=== PATIENT | female | born 1945 | race Caucasian/White ===

== ENCOUNTER 2020-05-02 19:06 | Inpatient (IN) | payer SELFPAY ==
[~2020-05-02] VITALS: Ht 149.9 cm; Wt 94.8 kg
[2020-05-02] MEDS ORDERED: ASPIRIN 325 MG TABLET ONE (19:25)
[2020-05-02] MEDS ORDERED: NITROGLYCERIN PACKET 1 GM PACKET ONE (19:25)
[2020-05-02] MEDS ORDERED: ASPIRIN 325 MG TABLET PO ONE (19:30)
[2020-05-02] MEDS ORDERED: NITROGLYCERIN PACKET 1 GM PACKET TD ONE (19:30)
--- NOTE | 2020-05-02 19:31 | NUR ---
PT AAOX4. SAMI SPEAKING BIBDAUGHTER C/O L SIDED CP SINCE 2 DAYS AGO RADIATING TO L ARM. PT PLACED IN ROOM 9 ON GYROSCOPIC ENGINEERING TECHNICIAN AND PULSE OX. LINE INITIATED RAC 20G, BLOOD DRAWN AND SENT TO LAB. PT MEDICATED W 325MG PO ASPIRIN. VSS. NO ACUTE DISTRESS NOTED.
--- NOTE | 2020-05-02 19:34 | NUR ---
RADIOLOGY AT BEDSIDE FOR XRAY
[2020-05-02 19:38] LABS: BASOPHILS # (AUTO) 0.1 /CMM (0.0-0.2); BASOPHILS % (AUTO) 1.1 % (0.0-2.0); EOSINOPHILS % (AUTO) 1.3 % (0.0-6.0); HEMATOCRIT 44 % (33-45); HEMOGLOBIN 14.9 g/dL (11.5-14.8); LYMPHOCYTES # (AUTO) 2.2 /CMM (0.8-4.8); LYMPHOCYTES % (AUTO) 31.6 % (20.0-44.0); MEAN CORPUSCULAR HGB CONC 34 g/dl (31.0-36.0); MEAN CORPUSCULAR VOLUME 87 fL (82-100); MONOCYTES # (AUTO) 0.4 /CMM (0.1-1.30); MONOCYTES % (AUTO) 6.4 % (2.0-12.0); NEUTROPHILS # (AUTO) 4.2 /CMM (1.8-8.9); NEUTROPHILS % (AUTO) 59.6 % (43.0-81.0); PLATELET COUNT (AUTO) 170 /CMM (150-450); RED BLOOD CELL COUNT(AUTO) 5.09 MIL/uL (4.0-5.2)
--- NOTE | 2020-05-02 19:43 | NUR ---
AWAITING COVID SWAB
--- NOTE | 2020-05-02 20:02 | NUR ---
SPOKE TO FAMILY REGARDING TESTING PT FOR COVID, PT'S DAUGHTER STATED "LET ME ASK HER IF SHE WANTS TO STAY." MD NOTIFIED.
--- NOTE | 2020-05-02 20:15 | NUR ---
COVID SWAB SENT TO LAB
[2020-05-02 20:16] LABS: CALCIUM, SERUM 8.8 mg/dL (8.5-10.1); CARBON DIOXIDE 25 mmol/L (21-32); CHLORIDE 104 mmol/L (98-107); CREATININE 0.9 mg/dL (0.6-1.3); GLUCOSE 122 mg/dL (74-106); POTASSIUM 3.9 mmol/L (3.5-5.1); SODIUM SERUM 142 mmol/L (136-145); UREA NITROGEN, BLOOD 17 mg/dL (7-18)
[2020-05-02 20:21] LABS: ALANINE AMINOTRANSFERASE 41 U/L (12-78); ALBUMIN 3.9 g/dL (3.4-5.0); ALKALINE PHOSPHATASE 59 U/L (46-116); ASPARTATE AMINOTRANSFERASE 19 U/L (15-37); BILIRUBIN,DIRECT 0.1 mg/dL (0.0-0.2); BILIRUBIN,TOTAL 0.3 mg/dL (0.2-1.0); TOTAL PROTEIN, SERUM 7.7 g/dL (6.4-8.2)
[2020-05-02] MEDS ORDERED: ENALAPRILAT INJ (1.25 MG/ML) 1.25 MG/ML VIAL IV ONE (20:28)
[2020-05-02] MEDS ORDERED: ENALAPRILAT DIHYD. (2.5MG/ML) 1.25 MG/ML VIAL IV ONE (20:30)
--- NOTE | 2020-05-02 20:35 | NUR ---
VASOTEC HELD DUE TO BP BEING 156/73. NOTIFIED.
--- NOTE | 2020-05-02 20:55 | NUR ---
SPOKE TO LAB, STATED THEY RECIEVED COVID SWAB.
[2020-05-02] MEDS ORDERED: ENALAPRILAT INJ (1.25 MG/ML) 1.25 MG/ML VIAL IV PRN (21:00)
[2020-05-02] MEDS ORDERED: IV NS 0.9% 500 ML IV PRN (21:00)
[2020-05-02] MEDS ORDERED: NITROGLYCERIN 0.4 MG/TAB BOTTLE SL PRN (21:00)
[2020-05-02] MEDS ORDERED: MAG HYDROX/AL HYDROX/SIMETH 30 ML UDC PO PRN (21:00)
[2020-05-02] MEDS ORDERED: MORPHINE SULFATE INJ 2 MG/ML DISP.SYRIN IV PRN (21:00)
[2020-05-02] MEDS ORDERED: DOCUSATE SODIUM 100 MG CAPSULE PO PRN (21:00)
[2020-05-02] MEDS ORDERED: ONDANSETRON HCL/PF 4 MG/2 ML VIAL IVP PRN (21:00)
--- NOTE | 2020-05-02 21:18 | NUR ---
PT UNABLE TO RECALL MEDS. SPOKE TO DAUGHTER REGARDING CALLING ME W MED LIST. Addendum: 05/02/20 at 2218 by WALLY SPOKE TO STACIA CYR)
--- NOTE | 2020-05-02 21:40 | NUR ---
STACIA (PT'S FRIEND)
--- NOTE | 2020-05-02 22:15 | NUR ---
REPORT GIVEN TO RASHEEDA WRIGHT FOR SWAPNA
--- NOTE | 2020-05-02 22:18 | NUR ---
PT TRANSFERED PER ACLS PROTOCOL
--- NOTE | 2020-05-02 22:18 | NUR ---
UPDATED PAL[place]O PLAN OF CARE.
--- NOTE | 2020-05-02 23:01 | NUR ---
TRANSFORMATION SPECIALIST ADMITTING NOTES ADMITTED PATIENT, FROM ER TRANSPORTED VIA GURNEY, NO SIGNS OF ACUTE CARDIAC OR RESPIRATORY DISTRESS NOTED. ALERT ORIENTED X4, MICRONESIAN SPEAKING. ORIENTED TO ROOM AND THE USE OF CALL LIGHT. SAFETY MEASURES IN PLACE, ASPIRATION PRECAUTION EMPHASIZED. SEEN BY Felicita NAVARRETE NP. DENIES ANY PAIN OR DISCOMFORT AT THIS TIME, REPOSITIONED FOR COMFORT. SKIN INTACT NOTED DURING ASSESSMENT. CONNECTED TO TELE MONITOR READS SINUS RHYTHM 80s. PERIPHERAL IV ACCESS ON HER RIGHT AC G#20 INTACT AND PATENT. ALL NEEDS ANTICIPATED. ADMISSION PROCESS INITIATED. WILL CONTINUE TO MONITOR ACCORDINGLY.
[2020-05-02 23:59] VITALS: BP 151/93
[2020-05-03] MEDS: ACETAMINOPHEN 325 MG TABLET PO PRN ×3 (03:15→15:12)
[2020-05-03 04:21] VITALS: BP 139/82
--- NOTE | 2020-05-03 06:39 | NUR ---
FLOOR SURFACER NOTES ALL NEEDS ATTENDED AND MET, ABLE TO REST AND SLEPT AT INTERVALS. REPOSITIONED FOR COMFORT. IV ACCESS INTACT AND PATENT. SAFETY MEASURES IN PLACE, TELE MONITOR READS SINUS RHYTHM 85. ALL NEEDS ANTICIPATED. CALL LIGHT WITH IN EASY REACH. WILL ENDORSE TO AM NURSE FOR CONTINUITY OF CARE.
--- NOTE | 2020-05-03 07:30 | NUR ---
ms rn received on bed, awake,alert,oriented x4,not in any form of distress, respirations even and unlabored,no sob noted,denies pain at this time,will monitor patient.
[2020-05-03] MEDS ORDERED: IBUP-1953 PO (07:42)
[2020-05-03 08:00] VITALS: BP 122/48
--- NOTE | 2020-05-03 08:00 | NUR ---
ms rn was seen by dr. Marquis carbajal/ orders made and carried out.
[2020-05-03] MEDS ORDERED: ASPIRIN 81 MG TAB.CHEW PO SCH (09:00)
[2020-05-03] MEDS ORDERED: NITROGLYCERIN 0.4 MG/TAB BOTTLE SL ONE (09:30)
[2020-05-03 09:36] LABS: THYROID STIMULATING HORMONE 4.312 uIU/mL (0.358-3.74)
[2020-05-03] MEDS ORDERED: IOHEXOL-350 100 ML VIAL IV ONE (09:39)
[2020-05-03] MEDS ORDERED: IV NS 0.9% 250 ML IV ONE (09:39)
[2020-05-03] MEDS: METOPROLOL TARTRATE INJ 5 MG/5 ML AMPUL IVP PRN ×10 (09:50→10:35)
--- NOTE | 2020-05-03 10:00 | NUR ---
ms rn patient went down for ct angio at this time.
--- NOTE | 2020-05-03 11:04 | NUR ---
RN NOTES: Post CTA: Patient able to tolerate the procedure, no distress noted. Transferred back to patient room in stable condition.
--- NOTE | 2020-05-03 11:30 | NUR ---
ms rn patient came back from procedure,all needs attended.
[2020-05-03 12:00] VITALS: BP 135/87
[2020-05-03] MEDS ORDERED: METOPROLOL TARTRATE 50 MG TABLET PO SCH (12:00)
--- NOTE | 2020-05-03 12:30 | NUR ---
ms rn was seen by Amanda carbajal/ order to go home today.
--- NOTE | 2020-05-03 13:00 | NUR ---
ms rn refused metoprolol, patient claimed she has it already iv.
[2020-05-03] MEDS ORDERED: METO50TA16 PO (13:23)
[2020-05-03] MEDS ORDERED: SIMV10TA98 PO (13:23)
--- NOTE | 2020-05-03 14:00 | NUR ---
ms rn called friend to bean picker patient, will be available this pm.
--- NOTE | 2020-05-03 16:40 | NUR ---
ms rn went home ,spanish moss picker by friend, prescription to be spanish moss picker at the pharmacy.
[2020-05-03] MEDS ORDERED: SIMVASTATIN 10 MG TABLET PO SCH (22:00)
== END 2020-05-03 17:30 | disposition home or self-care (01) | DRG 305 ==
LOC: ER 19:09 → TELE 22:03 → MED 05-03 08:37
PROVIDERS: ADMIT Registered Nurse; ATTEND Nurse Practitioner Acute Care
DX: I16.0 Hypertensive urgency (principal); Z68.41 Body mass index [BMI] 40.0-44.9, adult; I10 Essential (primary) hypertension; E78.5 Hyperlipidemia, unspecified; E03.9 Hypothyroidism, unspecified; Z86.73 Personal history of transient ischemic attack (TIA), and cerebral infarction without residual deficits; E66.01 Morbid (severe) obesity due to excess calories; G47.33 Obstructive sleep apnea (adult) (pediatric)
CPT/HCPCS: 36415; 71045-TC; 75574; 80048-TC; 80061-TC; 80076-TC; 84439-TC; 84443-TC; 84484-TC; 85025-TC; 87081-TC; 93307-TC; C9803-CS; G0378; J3490; J7050; Q9967